=== PATIENT | male | born 1975 | race African-American/Black ===

== ENCOUNTER 2021-10-28 00:02 | Emergency (ER) | payer SELFPAY ==
[2021-10-28] MEDS ORDERED: cefTRIAXone\\ROCEPHIN 500 MG VIAL ONE (00:20)
[2021-10-28 12:40] LABS: Chlam.trachomatis by PCR,Urine Not Detected (NotDetected)
== END 2021-10-28 01:28 | disposition home or self-care (01) ==
LOC: ERS 00:02
DX: Z20.2 Contact with and (suspected) exposure to infections with a predominantly sexual mode of transmission (principal); F17.210 Nicotine dependence, cigarettes, uncomplicated
CPT/HCPCS: 87491; 87591; 96372; 99283; J0696

== ENCOUNTER 2021-12-02 17:52 | Emergency (ER) | payer SELFPAY ==
[2021-12-02 18:59] LABS: Bilirubin Negative (Negative); Blood, Urine Negative (Negative); Clarity Clear (Clear); Glucose, Urine (Dipstick) Normal (Negative); Ketone, Urine Trace mg/dL (Negative); Leukocyte Negative Leu/uL (Negative); Nitrite Negative (Negative); Protein, Urine (Dipstick) 10 mg/dL (Neg-Trace); Specific Gravity, Urine 1.034 (1.002-1.036); pH, Urine 5.5 (5.0-9.0)
[2021-12-02] MEDS ORDERED: cefTRIAXone\\ROCEPHIN 500 MG VIAL ONE (19:17)
[2021-12-02] MEDS ORDERED: Lidocaine 1% MPF 2 ML VIAL ONE (19:17)
[2021-12-03 15:44] LABS: Chlam.trachomatis by PCR,Urine Not Detected (NotDetected)
== END 2021-12-02 20:02 | disposition home or self-care (01) ==
LOC: ERS 17:52
DX: N34.2 Other urethritis (principal); J45.909 Unspecified asthma, uncomplicated; F17.210 Nicotine dependence, cigarettes, uncomplicated
CPT/HCPCS: 81003; 87491; 87591; 96372; 99283; J0696

== ENCOUNTER 2021-12-05 15:09 | Emergency (ER) | payer SELFPAY | END 2021-12-05 18:27 | disposition home or self-care (01) | LOC: ERS 15:09 | DX: R10.30 Lower abdominal pain, unspecified (principal); F17.210 Nicotine dependence, cigarettes, uncomplicated | CPT/HCPCS: 99283 ==

== ENCOUNTER 2021-12-12 01:36 | Emergency (ER) | payer OTHER, BC ==
[2021-12-12] MEDS ORDERED: Amoxicillin/Potassium Clav 875 MG TAB ONE (03:02)
[2021-12-12] MEDS ORDERED: Boostrix 0.5 ML (Tdap) VIAL ONE (03:03)
== END 2021-12-12 03:51 | disposition home or self-care (01) ==
LOC: ERS 01:36
DX: S81.832A Puncture wound without foreign body, left lower leg, initial encounter (principal); W54.0XXA Bitten by dog, initial encounter; Z23 Encounter for immunization
CPT/HCPCS: 90471; 90715

== ENCOUNTER 2022-01-05 14:57 | Emergency (ER) | payer BC ==
[2022-01-05 15:56] LABS: #Eosinphils 0.1 thou/uL (0.0-0.7); #Monocytes 0.6 thou/uL (0.11-0.59); #Neutrophils 3.4 thou/uL (1.40-6.50); %Basophils 0.7 % (0.0-1.0); %Eosinophils 1.6 % (0.0-10.0); %Lymphocytes 32.6 % (21.0-51.0); %Monocytes 9.1 % (0.0-10.0); %Neutrophils 56.1 % (42.0-75.0); Hemoglobin 14.7 g/dL (14.0-18.0); Mean Corpuscular HGB CONC 33.5 g/dL (32.0-36.0); Mean Corpuscular Hemoglobin 31.9 pg (27.0-31.0); Mean Corpuscular Volume 95.2 fL (78.0-98.0); Mean Platelet Volume 11.2 fL (7.4-10.4); Platelet Count 119 thou/uL (130-400); RBC Distribution Width 14.3 % (11.5-14.5); Red Blood Cell (RBC) Count 4.59 mill/uL (4.70-6.10); White Blood Cell (WBC) Count 6.1 thou/uL (4.8-10.8)
[2022-01-05 16:12] LABS: ALT (SGPT) 34 U/L (8-55); AST (SGOT) 27 U/L (5-34); Albumin 3.7 g/dL (3.5-5.0); Alkaline Phosphatase 64 U/L (40-110); Anion Gap 12 mmol/L (10-20); BUN (Urea Nitrogen) 10 mg/dL (8.9-20.6); Bilirubin, Total 0.3 mg/dL (0.2-1.2); Calc. Creatinine Clearance 0 mL/min (70-130); Calcium 8.8 mg/dL (7.8-10.44); Carbon Dioxide 26 mmol/L (22-29); Chloride 105 mmol/L (98-107); Estimated GFR 103; Globulin 2.5 g/dL (2.4-3.5); Glucose 91 mg/dL (70-105); Potassium 3.7 mmol/L (3.5-5.1); Protein, Total 6.2 g/dL (6.0-8.3); Sodium 139 mmol/L (136-145)
[2022-01-05 16:19] LABS: MDiff Complete? YES; Platelet Morphology Comment Appears Decreased; Polychromasia SLIGHT = 2-3 cells (100X) (0-2/hpf); Target Cells SLIGHT = 2-5 cells (100X) (0-1/hpf)
[2022-01-05 16:54] LABS: Bilirubin Negative (Negative); Blood, Urine Negative (Negative); Clarity Clear (Clear); Glucose, Urine (Dipstick) Normal (Negative); Ketone, Urine Negative (Negative); Leukocyte Negative Leu/uL (Negative); Nitrite Negative (Negative); Protein, Urine (Dipstick) Negative (Neg-Trace); Specific Gravity, Urine 1.023 (1.002-1.036)
== END 2022-01-05 19:23 | disposition home or self-care (01) ==
LOC: ERS 14:57
DX: R10.30 Lower abdominal pain, unspecified (principal); F17.200 Nicotine dependence, unspecified, uncomplicated
CPT/HCPCS: 36415; 76870; 80053; 81003; 85025; 93976

== ENCOUNTER 2022-03-24 16:10 | Emergency (ER) | payer BC ==
[2022-03-24] MEDS ORDERED: cefTRIAXone\\ROCEPHIN 500 MG VIAL ONE (16:59)
[2022-03-24] MEDS ORDERED: Lidocaine 1% MPF 2 ML VIAL ONE (17:01)
== END 2022-03-24 18:06 | disposition home or self-care (01) ==
LOC: ERS 16:10
DX: R30.0 Dysuria (principal); E78.00 Pure hypercholesterolemia, unspecified; Z79.899 Other long term (current) drug therapy
CPT/HCPCS: 96372; 99283; J0696